=== PATIENT | female | born 1945 | race Caucasian/White ===

== ENCOUNTER → 2018-06-30 | Outpatient (REF) | payer MEDICARE, BC | LOC: M SFHCPLAZ 15:34 | DX: N63.0 Unspecified lump in unspecified breast (principal) | CPT/HCPCS: 88305 ==

== ENCOUNTER → 2025-03-28 | Outpatient (CLI) | payer MEDICARE | LOC: M PLALAB 11:00 | PROVIDERS: ATTEND Surgery | DX: C50.211 Malignant neoplasm of upper-inner quadrant of right female breast (principal); Z80.3 Family history of malignant neoplasm of breast ==

== ENCOUNTER → 2025-05-09 | Outpatient (CLI) | payer MEDICARE ==
[~2025-05-09] VITALS: Ht 154.9 cm; Wt 87.3 kg
[~2025-05-09] MED LIST: ACET-907 PO; ATOR1TAB21 PO; ECOT81TA5 PO; ENAL1TAB50 PO; EPIN0.3I11 IM; LEXA1TAB2 PO; LIDO30CR18 TOP; NS (Normal Saline) 0.9% 1,000 ML IV SCH; NYST1POW3 TOP; TRAM50TA2 PO
[2025-05-09 07:10] VITALS: TEMP 99
[2025-05-09] MEDS: ceFAZolin SODIUM 2 GM in DEXTROSE 5% (D5W) ADV/MINI-BAG 50 ML IV ONE (07:52)
[2025-05-09] MEDS: MIDAZOLAM INJ 2 MG/2 ML VIAL IV PRN (08:31)
[2025-05-09] MEDS: LIDOCAINE 1% MDV 20 ML VIAL SC SCH (08:44)
[2025-05-09 09:30] VITALS: BP 147/66; O2SAT 95
== END ==
LOC: M IRPRO 06:47
PROVIDERS: ATTEND Specialist
DX: C50.919 Malignant neoplasm of unspecified site of unspecified female breast (principal)
CPT/HCPCS: 36561; 99152; J0690; J1642; J2250; J3010

== ENCOUNTER → 2025-05-17 | Outpatient (CLI) | payer MEDICARE ==
[~2025-05-17] MED LIST changes: -NS (Normal Saline) 0.9% 1,000 ML IV SCH
== END ==
LOC: M RAD 08:43
PROVIDERS: ATTEND Specialist
DX: C50.919 Malignant neoplasm of unspecified site of unspecified female breast (principal)
CPT/HCPCS: 78306; A9503

== ENCOUNTER → 2025-05-25 | Outpatient (CLI) | payer MEDICARE ==
[~2025-05-25] MED LIST changes: +ISOVUE-370 76% 100 ML VIAL ONE
== END ==
LOC: M PLAIMG 08:58
PROVIDERS: ATTEND Specialist
DX: C50.911 Malignant neoplasm of unspecified site of right female breast (principal); K57.90 Diverticulosis of intestine, part unspecified, without perforation or abscess without bleeding; I70.0 Atherosclerosis of aorta; M47.816 Spondylosis without myelopathy or radiculopathy, lumbar region; K40.20 Bilateral inguinal hernia, without obstruction or gangrene, not specified as recurrent; K76.0 Fatty (change of) liver, not elsewhere classified; E27.8 Other specified disorders of adrenal gland; K76.89 Other specified diseases of liver; I25.10 Atherosclerotic heart disease of native coronary artery without angina pectoris; J43.2 Centrilobular emphysema; R91.8 Other nonspecific abnormal finding of lung field; R93.89 Abnormal findings on diagnostic imaging of other specified body structures
CPT/HCPCS: 71260; 74177; Q9967

== ENCOUNTER → 2025-06-09 | Outpatient (CLI) | payer MEDICARE ==
[~2025-06-09] MED LIST changes: +CAPE1TAB2 PO; -ISOVUE-370 76% 100 ML VIAL ONE
== END ==
LOC: M ONCR 13:21
PROVIDERS: ATTEND General Practice
DX: C78.01 Secondary malignant neoplasm of right lung (principal); C78.7 Secondary malignant neoplasm of liver and intrahepatic bile duct; C50.111 Malignant neoplasm of central portion of right female breast; Z17.1 Estrogen receptor negative status [ER-]; Z17.22 Progesterone receptor negative status; Z17.32 Human epidermal growth factor receptor 2 negative status; Z98.890 Other specified postprocedural states; Z80.3 Family history of malignant neoplasm of breast; Z87.891 Personal history of nicotine dependence; Z88.0 Allergy status to penicillin; Z88.1 Allergy status to other antibiotic agents; Z79.899 Other long term (current) drug therapy

== ENCOUNTER → 2025-06-12 | Outpatient (CLI) | payer MEDICARE ==
[~2025-06-12] MED LIST changes: -CAPE1TAB2 PO
== END ==
LOC: M PLARAD 12:21
PROVIDERS: ATTEND Internal Medicine Medical Oncology
DX: C50.211 Malignant neoplasm of upper-inner quadrant of right female breast (principal); R59.0 Localized enlarged lymph nodes; E27.8 Other specified disorders of adrenal gland
CPT/HCPCS: 78815; A9552

== ENCOUNTER → 2025-06-19 | Outpatient (CLI) | payer MEDICARE ==
[~2025-06-19] MED LIST changes: +CAPE1TAB2 PO
== END ==
LOC: M ONCR 11:00
PROVIDERS: ATTEND General Practice
DX: C79.89 Secondary malignant neoplasm of other specified sites (principal); C50.919 Malignant neoplasm of unspecified site of unspecified female breast; R59.0 Localized enlarged lymph nodes

== ENCOUNTER 2025-07-05 12:20 | Outpatient (RCR) | payer MEDICARE | END 2025-07-09 | LOC: M ONCR 12:20 | PROVIDERS: ATTEND General Practice | DX: Z51.0 Encounter for antineoplastic radiation therapy (principal); C50.111 Malignant neoplasm of central portion of right female breast ==

== ENCOUNTER → 2025-07-11 | Outpatient (CLI) | payer MEDICARE | LOC: M ONCR 15:17 | PROVIDERS: ATTEND General Practice | DX: C79.89 Secondary malignant neoplasm of other specified sites (principal) ==

== ENCOUNTER 2025-07-31 13:40 | Emergency (ER) | payer MEDICARE ==
[~2025-07-31] VITALS: Ht 154.9 cm; Wt 83.6 kg
[2025-07-31 20:19] VITALS: BP 177/75; TEMP 98.8; O2SAT 96
[2025-07-31] MEDS ORDERED: MOXI1TAB PO (20:21)
[2025-07-31] MEDS: MOXIFLOXACIN 400 MG TAB PO ONE (20:43)
== END 2025-07-31 21:07 | disposition home or self-care (01) ==
LOC: M ED 13:40
DX: J18.9 Pneumonia, unspecified organism (principal); B34.1 Enterovirus infection, unspecified; I10 Essential (primary) hypertension; F32.A Depression, unspecified; E78.5 Hyperlipidemia, unspecified; C50.919 Malignant neoplasm of unspecified site of unspecified female breast; Z88.0 Allergy status to penicillin; Z90.89 Acquired absence of other organs; Z79.02 Long term (current) use of antithrombotics/antiplatelets; Z79.1 Long term (current) use of non-steroidal anti-inflammatories (NSAID); Z79.899 Other long term (current) drug therapy

== ENCOUNTER → 2025-08-07 | Outpatient (CLI) | payer MEDICARE ==
[~2025-08-07] MED LIST changes: +DICL20GE TP; +ERYT-88 PO; +MOXI1TAB PO
== END ==
LOC: M ONCR 14:34
PROVIDERS: ATTEND General Practice
DX: Z01.89 Encounter for other specified special examinations (principal); E11.9 Type 2 diabetes mellitus without complications; R63.4 Abnormal weight loss; Z79.4 Long term (current) use of insulin; Z92.3 Personal history of irradiation

== ENCOUNTER → 2025-08-24 | Outpatient (CLI) | payer MEDICARE ==
[~2025-08-24] MED LIST changes: +PROHANCE 279.3MG/ML 15ML VIAL ONE; +PROHANCE 279.3MG/ML 5ML VIAL ONE
== END ==
LOC: M PLAIMG 08:00
PROVIDERS: ATTEND Student in an Organized Health Care Education/Training Program
DX: C50.911 Malignant neoplasm of unspecified site of right female breast (principal)
CPT/HCPCS: 70553; A9576

== ENCOUNTER 2025-10-23 11:54 | Inpatient (IN) | payer MEDICARE ==
[~2025-10-23] VITALS: Ht 157.5 cm; Wt 75.0 kg
[~2025-10-23 11:54] MED LIST changes: +PIOG1TAB36; +PIOG1TAB36 PO; -PROHANCE 279.3MG/ML 15ML VIAL ONE; -PROHANCE 279.3MG/ML 5ML VIAL ONE
[2025-10-23] MEDS ORDERED: SODIUM CHLORIDE 0.9% INJ 10 ML SYR IV PRN (13:00)
[2025-10-23] MEDS ORDERED: HEPARIN LOCK FLUSH 100 UNITS/ML 3 ML SYRINGE IV PRN (13:00)
[2025-10-23 13:42] LABS: APPEARANCE, URINE CLEAR (CLEAR); BACTERIA, URINE AUTO NEGATIVE (NEGATIVE); BILIRUBIN, URINE AUTO NEGATIVE (NEGATIVE); BLOOD, URINE BLOOD NEGATIVE (NEGATIVE); GLUCOSE, URINE (UA) AUTO 3+ mg/dL (NEGATIVE); KETONE, URINE AUTO TRACE mg/dL (NEGATIVE); LEUKOCYTE ESTERASE, URINE AUTO NEGATIVE (NEGATIVE); NITRITE, URINE AUTO NEGATIVE (NEGATIVE); PROTEIN, URINE AUTO NEGATIVE (NEGATIVE); RBC, URINE AUTO 0 /HPF (0-3); SPECIFIC GRAVITY URINE AUTO 1.029 (1.002-1.035); SQUAMOUS EPITHELIAL CELL UR AU 1 /HPF (0-6); UROBILINOGEN, URINE AUTO 0.2 mg/dL (0.0-2.0); WBC, URINE AUTO 2 /HPF (0-3)
[2025-10-23 14:01] LABS: VENOUS BASE EXCESS 0.8 (-2.0-2.0); VENOUS HCO3 26.6 MMOL/L (23.0-27.0); VENOUS O2 SATURATION 74.0 % (60.0-80.0); VENOUS PARTIAL PRESSURE CO2 47.4 mmHg (38.0-50.0); VENOUS PARTIAL PRESSURE O2 41.2 mmHg (30.0-50.0); VENOUS PH 7.367 UNITS (7.330-7.430); VENOUS STANDARD HCO3 24.7 MMOL/L; VENOUS TOTAL CO2 28.1 MMOL/L (24.0-28.0)
[2025-10-23] MEDS ORDERED: CIDE250T PO (14:02)
[2025-10-23] MEDS ORDERED: B-12100010 PO (14:02)
[2025-10-23] MEDS ORDERED: NYST1POW3 TOP (14:02)
[2025-10-23] MEDS ORDERED: PIOG1TAB36 PO (14:02)
[2025-10-23] MEDS: NS (Normal Saline) 0.9% 1,000 ML IV SCH (14:07)
[2025-10-23] MEDS ORDERED: HOME MED LIST COMPLETE! XX SCH (14:10)
[2025-10-23 14:17] LABS: OSMOLALITY SERUM 311.0 MOSM/KG (280-301)
[2025-10-23 14:22] LABS: ACETONE/KETONE 0.52 MMOL/L (0.02-0.27)
[2025-10-23 14:25] LABS: ALT/SGPT 338.0 U/L (7.0-40); AST/SGOT 131.0 U/L (<34); CALCIUM LEVEL 8.3 MG/DL (8.3-10.6); CARBON DIOXIDE LEVEL 26.0 MMOL/L (20-31); CHLORIDE LEVEL 98.0 MMOL/L (98-107); CREATININE FOR GFR 0.74 MG/DL (0.55-1.30); GLOMERULAR FILTRATION RATE 81.7 (>32); POTASSIUM SERUM 4.1 MMOL/L (3.5-5.1); SODIUM LEVEL 132.0 MMOL/L (136-145)
[2025-10-23 14:29] LABS: ESTIMATED AVERAGE GLUCOSE 324.0 MG/DL (60-110)
[2025-10-23] MEDS ORDERED: GLUCOSE 4 GM CHEW PO PRN (15:10)
[2025-10-23] MEDS ORDERED: DEXTROSE 50% 50 ML SYRINGE IV PRN (15:10)
[2025-10-23] MEDS ORDERED: GLUCAGON INJ 1 MG VIAL SC PRN (15:10)
[2025-10-23] MEDS: NS (Normal Saline) 0.9% 1,000 ML IV ONE (15:40)
[2025-10-23] MEDS ORDERED: ACETAMINOPHEN 325 MG TAB PO PRN (16:05)
[2025-10-23] MEDS ORDERED: LIDOCAINE/PRILOCAINE CREAM 5 GM TUBE TOP PRN (16:05)
[2025-10-23] MEDS: LanTUS (INSULIN GLARGINE INJ) 1 UNITS/0.01 ML SC ONE (16:16)
[2025-10-23 16:32] LABS: CALCIUM LEVEL 8.1 MG/DL (8.3-10.6); CARBON DIOXIDE LEVEL 26.0 MMOL/L (20-31); CHLORIDE LEVEL 100.0 MMOL/L (98-107); CREATININE FOR GFR 0.73 MG/DL (0.55-1.30); GLOMERULAR FILTRATION RATE 83.1 (>32); POTASSIUM SERUM 4.6 MMOL/L (3.5-5.1); SODIUM LEVEL 133.0 MMOL/L (136-145)
[2025-10-23 16:48] VITALS: BP 148/65; TEMP 98.4; O2SAT 97
[2025-10-23] MEDS: INSULIN LISPRO (NovoLOG) PER UNIT SC ONE (17:45)
[2025-10-23] MEDS: GASTROGRAFIN SOLUTION 30ML PO SCH (17:59)
[2025-10-23] MEDS: INSULIN LISPRO (NovoLOG) PER UNIT SC SCH ×2 (18:51→20:45)
[2025-10-23 20:41] LABS: CALCIUM LEVEL 8.0 MG/DL (8.3-10.6); CARBON DIOXIDE LEVEL 26 MMOL/L (20-31); CHLORIDE LEVEL 104 MMOL/L (98-107); CREATININE FOR GFR 0.61 MG/DL (0.55-1.30); GLOMERULAR FILTRATION RATE > 90.0 (>32); POTASSIUM SERUM 3.9 MMOL/L (3.5-5.1); SODIUM LEVEL 138 MMOL/L (136-145)
[2025-10-23] MEDS: ENALAPRIL MALEATE 10 MG TAB PO SCH (20:45)
[2025-10-23] MEDS: ESCITALOPRAM OXALATE 10 MG TABLET PO SCH (20:46)
[2025-10-23] MEDS: ATORVASTATIN 20 MG TAB PO SCH (20:46)
[2025-10-23] MEDS: NYSTATIN 100,000 UNITS/GM TOPICAL PWD 15 GM TOP SCH (20:46)
[2025-10-23] MEDS ORDERED: ENTER DRUG NAME HERE (PATIENT'S OWN MED) PO SCH (21:00)
[2025-10-23 21:02] VITALS: BP 141/68; TEMP 98.2; O2SAT 97
[2025-10-24 01:44] LABS: CALCIUM LEVEL 7.8 MG/DL (8.3-10.6); CARBON DIOXIDE LEVEL 26 MMOL/L (20-31); CHLORIDE LEVEL 104 MMOL/L (98-107); CREATININE FOR GFR 0.60 MG/DL (0.55-1.30); GLOMERULAR FILTRATION RATE > 90.0 (>32); POTASSIUM SERUM 4.5 MMOL/L (3.5-5.1); SODIUM LEVEL 136 MMOL/L (136-145)
[2025-10-24 03:42] VITALS: BP 136/69; TEMP 98.2; O2SAT 97
[2025-10-24 07:24] LABS: PLATELET COUNT, AUTOMATED 324 10^3/uL (150-450)
[2025-10-24 07:26] LABS: CALCIUM LEVEL 7.6 MG/DL (8.3-10.6); CARBON DIOXIDE LEVEL 24 MMOL/L (20-31); CHLORIDE LEVEL 105 MMOL/L (98-107); CREATININE FOR GFR 0.51 MG/DL (0.55-1.30); GLOMERULAR FILTRATION RATE > 90.0 (>32); POTASSIUM SERUM 4.2 MMOL/L (3.5-5.1); SODIUM LEVEL 136 MMOL/L (136-145)
[2025-10-24] MEDS ORDERED: SODIUM CHLORIDE 0.9% INJ 10 ML SYR IV SCH (09:00)
[2025-10-24] MEDS ORDERED: HEPARIN LOCK FLUSH 100 UNITS/ML 3 ML SYRINGE IV SCH (09:00)
[2025-10-24] MEDS: ENOXAPARIN 40 MG/0.4 ML SYRINGE (J1650 PER 10MG) SC SCH (09:20)
[2025-10-24] MEDS: CYANOCOBALAMIN 500 MCG TAB PO SCH (09:22)
[2025-10-24] MEDS: INSULIN LISPRO (NovoLOG) PER UNIT SC SCH (09:22)
[2025-10-24] MEDS ORDERED: LANTINJ4 SC (11:09)
[2025-10-24] MEDS ORDERED: HUMA100I5 SC (11:23)
[2025-10-24 12:00] VITALS: BP 114/56; TEMP 98.5; O2SAT 96
[2025-10-24 21:14] VITALS: BP 141/63; TEMP 97.9; O2SAT 95
[2025-10-24] MEDS: LanTUS (INSULIN GLARGINE INJ) 1 UNITS/0.01 ML SC SCH (22:56)
[2025-10-25 03:57] VITALS: BP 148/69; TEMP 98; O2SAT 93
[2025-10-25 07:03] LABS: PLATELET COUNT, AUTOMATED 311 10^3/uL (150-450)
[2025-10-25 07:32] LABS: ALT/SGPT 246 U/L (7.0-40); AST/SGOT 142 U/L (<34); CALCIUM LEVEL 7.4 MG/DL (8.3-10.6); CARBON DIOXIDE LEVEL 24 MMOL/L (20-31); CHLORIDE LEVEL 103 MMOL/L (98-107); CREATININE FOR GFR 0.53 MG/DL (0.55-1.30); GLOMERULAR FILTRATION RATE > 90.0 (>32); POTASSIUM SERUM 4.0 MMOL/L (3.5-5.1); SODIUM LEVEL 136 MMOL/L (136-145)
[2025-10-25] MEDS ORDERED: INSU100I16 SQ (11:35)
[2025-10-25 12:11] VITALS: BP 148/63; TEMP 98.2; O2SAT 98
[2025-10-25 20:37] VITALS: BP 181/72; TEMP 97.1; O2SAT 96
[2025-10-25 20:57] VITALS: BP 181/72
[2025-10-25] MEDS: LanTUS (INSULIN GLARGINE INJ) 1 UNITS/0.01 ML SC SCH (20:58)
[2025-10-26 02:31] VITALS: BP 160/73; TEMP 98.9; O2SAT 94
[2025-10-26 03:51] VITALS: BP 164/70; TEMP 97.3; O2SAT 96
[2025-10-26 06:50] LABS: PLATELET COUNT, AUTOMATED 324 10^3/uL (150-450)
[2025-10-26 07:06] LABS: CALCIUM LEVEL 7.3 MG/DL (8.3-10.6); CARBON DIOXIDE LEVEL 24 MMOL/L (20-31); CHLORIDE LEVEL 105 MMOL/L (98-107); CREATININE FOR GFR 0.48 MG/DL (0.55-1.30); GLOMERULAR FILTRATION RATE > 90.0 (>32); POTASSIUM SERUM 3.6 MMOL/L (3.5-5.1); SODIUM LEVEL 139 MMOL/L (136-145)
[2025-10-26] MEDS ORDERED: BLOOKIT21 XX (10:45)
[2025-10-26] MEDS ORDERED: PEN-308 SC (10:45)
[2025-10-26] MEDS ORDERED: LANC30MI XX (10:45)
[2025-10-26] MEDS ORDERED: GLUC1TES2 XX (10:45)
[2025-10-26] MEDS ORDERED: ALCOPAD25 TOP (10:45)
[2025-10-26] MEDS: UNRESOLVED PATIENT OWN MED ORDER XX SCH (10:47)
[2025-10-26 11:54] VITALS: BP 167/72; TEMP 98.3; O2SAT 97
== END 2025-10-26 13:19 | disposition home health service (06) | DRG 638 ==
LOC: M ED 11:54 → M ED INP 14:59 → M MSPAV 16:52
PROVIDERS: ADMIT General Practice; ATTEND Internal Medicine
DX: E11.65 Type 2 diabetes mellitus with hyperglycemia (principal); C78.7 Secondary malignant neoplasm of liver and intrahepatic bile duct; C78.00 Secondary malignant neoplasm of unspecified lung; C50.919 Malignant neoplasm of unspecified site of unspecified female breast; I10 Essential (primary) hypertension; E78.5 Hyperlipidemia, unspecified; Z87.891 Personal history of nicotine dependence; F32.A Depression, unspecified; E53.8 Deficiency of other specified B group vitamins; Z79.899 Other long term (current) drug therapy; Z88.0 Allergy status to penicillin